=== PATIENT | female | born 1960 | race Caucasian/White ===

== ENCOUNTER 2019-01-25 08:34 | Day surgery (SDC) | payer OTHER ==
[2019-01-25 09:47] LABS: #Basophils 0.1 thou/uL (0.0-0.2); #Lymphocytes 1.1 thou/uL (1.20-3.40); #Monocytes 0.4 thou/uL (0.11-0.59); #Neutrophils 6.8 thou/uL (1.40-6.50); %Basophils 0.7 % (0.0-1.0); %Eosinophils 0.3 % (0.0-10.0); %Lymphocytes 12.8 % (21.0-51.0); %Monocytes 4.6 % (0.0-10.0); %Neutrophils 81.6 % (42.0-75.0); Hemoglobin 12.4 g/dL (12.0-16.0); Mean Corpuscular HGB CONC 33.9 g/dL (32.0-36.0); Mean Corpuscular Hemoglobin 31.2 pg (27.0-31.0); Mean Platelet Volume 7.8 fL (7.4-10.4); Platelet Count 239 thou/uL (130-400); RBC Distribution Width 11.6 % (11.5-14.5); Red Blood Cell (RBC) Count 3.97 mill/uL (4.20-5.40); White Blood Cell (WBC) Count 8.3 thou/uL (4.8-10.8)
[2019-01-25 09:55] LABS: PTT 28.6 SEC (22.9-36.1); Prothrombin Time 13.3 SEC (12.0-14.7)
[2019-01-25 10:05] LABS: ALT (SGPT) 11 U/L (8-55); AST (SGOT) 18 U/L (5-34); Albumin 4.2 g/dL (3.5-5.0); Alkaline Phosphatase 49 U/L (40-110); Anion Gap 9 mmol/L (10-20); BUN (Urea Nitrogen) 15 mg/dL (9.8-20.1); Bilirubin, Total 0.4 mg/dL (0.2-1.2); Calc. Creatinine Clearance 0 mL/min (70-130); Calcium 9.1 mg/dL (7.8-10.44); Carbon Dioxide 27 mmol/L (22-29); Chloride 105 mmol/L (98-107); Estimated GFR-MDRD 76; Globulin 2.5 g/dL (2.4-3.5); Glucose 85 mg/dL (70-105); Lipase 75 U/L (8-78); Potassium 4.3 mmol/L (3.5-5.1); Protein, Total 6.7 g/dL (6.0-8.3); Sodium 137 mmol/L (136-145)
--- NOTE | 2019-01-25 18:22 | HP ---
DATE OF CONSULTATION: 01/25/2019 HISTORY OF PRESENT ILLNESS: Ms. Mccoy is a 58-year-old female, who had a colonoscopy with polypectomy by Dr. Rocco Gates 2 days ago. She had a 12 mm polyp removed from the ascending colon in a piecemeal with hot snare and a 2 mm polyp in the sigmoid colon removed with cold snare. The patient did well until early this morning, she began to have cramping and then passed bloody stool. She estimates she does about 4 times. She had a presyncopal episode, but did not pass out. She saw Dr. Ballard, who is chronic manager, recommended she come to the emergency room. [place] away from the town. Here, she is stable hemodynamically and in no overt distress. Her hemoglobin is 12.4. PHYSICAL EXAMINATION: VITAL SIGNS: Blood pressure 136/74, pulse 80, respiration 18. GENERAL: She is resting comfortably in bed. HEENT: Mucous membranes are pink and moist. Oropharynx, no lesions. NECK: Supple. LUNGS: Clear. HEART: Regular rate and rhythm without clicks or murmurs. ABDOMEN: Soft, nontender. LABORATORY DATA: Platelet counts normal. ASSESSMENT: 1. Post polypectomy bleeding, as the patient lives at some distance from the hospital, even though she had not had much of a drop in hemoglobin, she has had four bloody stools with a presyncopal episode at home. We will go ahead and proceed with endoscopy with attempt to control bleeding if high-risk stigmata are present. 2. Pathology report remains pending. Dr. Gates will follow up in this next week. Risks, benefits, and possible complications of endoscopy including perforation, bleeding, reaction to medication, and aspiration were discussed with the patient and . She wished to proceed. Job ID: [id number]
--- NOTE | 2019-01-25 20:06 | OP ---
DATE OF PROCEDURE: 01/25/2019 PROCEDURE PERFORMED: Colonoscopy with control of hemorrhage. PREOPERATIVE DIAGNOSES: 48 hours status post polypectomy. One small polyp removed from the sigmoid colon, roughly 20 cm in the anorectal verge and one polyp removed from the ascending colon. Significant post polypectomy bleed this morning with 7 to 8 bloody stools. Hemodynamically stable. POSTPROCEDURE DIAGNOSES: 1. The polypectomy site in the lower sigmoid was identified after copious irrigation of over 4 L of sterile water to clear the colon of old blood. This polypectomy site appeared flat. There was no visible vessel stigmata to indicate high risk for rebleeding. No intervention was performed. There are two other flat polyps noted in the right colon, which were not removed. These need to be removed at a later date. One is probably roughly 1 cm in size just distal to the area of the hemostatic clip placement. These will need to be removed at a later date, probably in 1 year. 2. A polypectomy site with ulceration, visible vessel, and clot was noted in the distal ascending colon just proximal to the hepatic flexure. Three hemostatic clips were placed, these will be placed in retroflexed position because difficult positioning adhesions of the colon, tortuous right colon, hepatic flexure region. TOTAL PROCEDURE TIME: 1 hour and 45 minutes. PLAN: 1. Observation here in postop recovery for couple of hours; if no bleeding and she is tolerating diet, she can go home later today. 2. Repeat colonoscopy in 1 year. 3. Follow up with Dr. Gates in 1 to 2 weeks. ANESTHESIA: TIVA. DESCRIPTION OF PROCEDURE: The patient was informed of the risks, benefits, and possible complications of endoscopy including perforation, reaction to medication, and aspiration. Informed consent was obtained. The patient was brought to the endoscopy suite, where she was sedated in gradual fashion. Once she was comfortable, rectal examination was performed, which was normal. There was maroon blood on the examining glove. The endoscope was advanced through the anal canal into the colon to the cecum. The colon was tortuous. Exam was very difficult. The patient had to be turned on her back and pressure was used to advance the scope all the way to the cecum. We irrigated the colon with about 4 L of sterile water to clear the old blood and clot. Initially could not identify the bleeding site in the proximal colon. We were able to clear most of the colon and came all way back into the rectum and the sigmoid polypectomy site at 20 cm was found, that was about 5 mm in size with no high-risk stigmata of bleeding, some bland ulcer. Retroflexed views in the rectum were normal. The scope was then slowly advanced again up to the colon, taking care not to overdistend or torque the colon and we were able to identify the polypectomy site in the ascending colon just proximal to the hepatic flexure. There was ulcer with visible vessel. Its location made it very difficult to get in good position. Ultimately, had to go to the cecum and retroflex the scope and bring it back up and we could place three hemoclips on the vessel and ablate it. There was a small polyp in the cecum noted and there was a polyp, probably a serrated-like lesion, which was flat in the hepatic region just distal to the polypectomy site where the clips were placed. This was not removed secondary to with bleeding with this exam and will need to be removed at a later date. The remainder of the colon showed no abnormalities with no bleeding at the termination of the procedure. The scope was removed after the colon was desufflated and the patient was brought to recovery room in stable condition. Job ID: [id number]
== END 2019-01-25 16:10 | disposition home or self-care (01) ==
LOC: ERS 08:34 → SDC 10:45
PROVIDERS: ATTEND Internal Medicine Gastroenterology
PROC: 0W3P8ZZ Control Bleeding in Gastrointestinal Tract, Via Natural or Artificial Opening Endoscopic (ICD-10-PCS; principal; 2019-01-25)
DX: K91.840 Postprocedural hemorrhage of a digestive system organ or structure following a digestive system procedure (principal); K63.5 Polyp of colon; Q43.8 Other specified congenital malformations of intestine; Z79.899 Other long term (current) drug therapy; Z88.5 Allergy status to narcotic agent
CPT/HCPCS: 36415; 80053; 82274; 83690; 85025; 85610; 85730; 86850; 86900; 86901

== ENCOUNTER 2019-02-26 14:12 | Outpatient (CLI) | payer OTHER ==
--- NOTE | 2019-02-26 15:54 | BD ---
Exam: DEXA Bone Density History: 58-year-old post-menopausal female for screening. Comparison: None Lumbar Spine: BMD (g/cm2) L1 0.845 T-Score: -1.3 L2 0.997 T-Score: -1.0 L3 0.954 T-Score: -1.2 L4 0.928 T-Score: -1.2 L1-L4 0.913 T-Score: -1.2 Femoral Neck: 0.723 T-Score: -1.1 Total Femur: 0.802 T-Score: -1.1 Impression: 1. Osteopenia. This patient has a 10-year WHO fracture risk of a major osteoporotic fracture of 6.6% and a hip fracture 0.4%. POS: TPC
== END 2019-02-26 14:13 | disposition home or self-care (01) ==
LOC: BICMAMMO 14:12
PROVIDERS: ATTEND Advanced Practice Midwife
DX: Z13.820 Encounter for screening for osteoporosis (principal); M85.80 Other specified disorders of bone density and structure, unspecified site
CPT/HCPCS: 77080

== ENCOUNTER 2021-03-05 10:30 | Outpatient (CLI) | payer BC | END 2021-03-05 10:31 | disposition home or self-care (01) | LOC: BICMAMMO 10:30 | PROVIDERS: ATTEND Advanced Practice Midwife | DX: Z13.820 Encounter for screening for osteoporosis (principal); M85.89 Other specified disorders of bone density and structure, multiple sites | CPT/HCPCS: 77080 ==

== ENCOUNTER 2023-09-20 13:41 | Outpatient (CLI) | payer BC | END 2023-09-20 13:42 | disposition home or self-care (01) | LOC: BICMAMMO 13:41 | PROVIDERS: ATTEND Advanced Practice Midwife | DX: M85.89 Other specified disorders of bone density and structure, multiple sites (principal) | CPT/HCPCS: 77080 ==